=== PATIENT | male | born 1965 | race Caucasian/White ===

== ENCOUNTER 2019-02-24 11:59 | Emergency (ER) | payer OTHER ==
--- NOTE | 2019-02-24 12:17 | ER Document Report ---
ED Medical Screen (RME) - General Chief Complaint: Tremor Stated Complaint: LOW BLOOD SUGAR Time Seen by Provider: 02/24/19 12:12 Notes: Patient is a 53-year-old male presents to the emergency department for generalized diaphoresis and weakness. States he was at work and thought her sugar was getting low. States he ate a peppermint andrea but that did not help with his generalized weakness and diaphoresis. Patient is denying any chest pain is admitting to generalized shortness of breath. Patient states he does have a history of atrial fibrillation and takes Xarelto for same. Patient's blood sugar was noted to be 210 in triage. GENERAL: Alert, interacts well. Anxious, hyperventilating. LUNGS: Clear to auscultation bilaterally, no wheezes, rales, or rhonchi. No respiratory distress. I have greeted and performed a rapid initial assessment of this patient. A comprehensive ED assessment and evaluation of the patient, analysis of test results and completion of the medical decision making process will be conducted by additional ED providers. I have specifically instructed the patient or family members with the patient to immediately return to any nursing staff should anything change in the patient's condition or with their chief complaint. This medical record was dictated with voice recognizing software. There may be grammatical, syntax errors that are unintended. - Related Data Allergies/Adverse Reactions: No Known Allergies Allergy (Verified 02/24/19 12:05) Physical Exam - Vital signs Vitals: Temp Pulse Resp BP Pulse Ox 97.2 F 94 22 H 184/83 H 100 02/24/19 12:05 02/24/19 12:05 02/24/19 12:05 02/24/19 12:05 02/24/19 12:05 Course - Vital Signs Vital signs: Temp Pulse Resp BP Pulse Ox 97.2 F 94 22 H 184/83 H 100 02/24/19 12:05 02/24/19 12:05 02/24/19 12:05 02/24/19 12:05 02/24/19 12:05 - Laboratory Laboratory results interpreted by me: 02/24/19 12:04 POC Glucose 210 H
--- NOTE | 2019-02-24 12:49 | RADIOLOGY REPORT (SQ) ---
EXAM DESCRIPTION: CHEST SINGLE VIEW COMPLETED DATE/TIME: 02/24/2019 12:38 pm REASON FOR STUDY: dizziness COMPARISON: None. EXAM PARAMETERS: NUMBER OF VIEWS: One view. TECHNIQUE: Single frontal radiographic view of the chest acquired. RADIATION DOSE: NA LIMITATIONS: None. FINDINGS: LUNGS AND PLEURA: No opacities, masses or pneumothorax. No pleural effusion. MEDIASTINUM AND HILAR STRUCTURES: No masses. Contour normal. HEART AND VASCULAR STRUCTURES: Heart normal in size. Normal vasculature. BONES: No acute findings. Degenerative changes in the spine. HARDWARE: None in the chest. OTHER: No other significant finding. IMPRESSION: NO ACUTE RADIOGRAPHIC FINDING IN THE CHEST. TECHNICAL DOCUMENTATION: JOB ID: [id number] [employer]- All Rights Reserved Reading location - IP/workstation name: [email or web address]
[2019-02-24 13:00] LABS: ABSOLUTE LYMPHOCYTES (AUTO) 2.4 10^3/uL (0.5-4.7); ABSOLUTE MONOCYTES (AUTO) 0.5 10^3/uL (0.1-1.4); ABSOLUTE NEUT (AUTO) 7.3 10^3/uL (1.7-8.2); BASOPHILS % (AUTO) 0.4 % (0-2); EOSINOPHILS % (AUTO) 0.4 % (0-6); HEMATOCRIT 45.3 % (37.9-51.0); HEMOGLOBIN 15.7 g/dL (13.5-17.0); LYMPHOCYTES % (AUTO) 23.4 % (13-45); MEAN CORPUSCULAR HEMOGLOBIN 32.1 pg (27.0-33.4); MEAN CORPUSCULAR HGB CONC 34.6 g/dL (32.0-36.0); MEAN CORPUSCULAR VOLUME 93 fl (80-97); MONOCYTES % (AUTO) 5.2 % (3-13); PLATELET COUNT 225 10^3/uL (150-450); RED CELL DISTRIBUTION WIDTH 13.5 % (11.5-14.0); SEGMENTED NEUTROPHILS % (AUTO) 70.6 % (42-78); TOTAL CELLS COUNTED % (AUTO) 100 %; WHITE BLOOD COUNT 10.4 10^3/uL (4.0-10.5)
[2019-02-24 13:11] LABS: INTERNATIONAL RATION (INR) 1.41; PROTHROMBIN TIME 17.4 SEC (11.4-15.4)
[2019-02-24 13:20] LABS: ALANINE AMINOTRANSFERASE 33 U/L (21-72); ALKALINE PHOSPHATASE 56 U/L (38-126); ANION GAP 14 (5-19); ASPARTATE AMINO TRANSFERASE 24 U/L (17-59); BILIRUBIN,DIRECT 0.2 mg/dL (0.0-0.4); BILIRUBIN,TOTAL 0.8 mg/dL (0.2-1.3); BLOOD UREA NITROGEN 8 mg/dL (7-20); CALCIUM 9.6 mg/dL (8.4-10.2); CARBON DIOXIDE 25 mmol/L (22-30); CHLORIDE 93 mmol/L (98-107); CREATINE KINASE 97 U/L (55-170); GLUCOSE 190 mg/dL (75-110); POTASSIUM 3.9 mmol/L (3.6-5.0); TOTAL PROTEIN 7.5 g/dL (6.3-8.2)
[2019-02-24 13:31] LABS: CREATINE KINASE MB 0.25 ng/mL (<4.55)
[2019-02-24 13:33] LABS: TROPONIN I < 0.012 ng/mL
--- NOTE | 2019-02-24 14:47 | ER Document Report ---
ED General - General Chief Complaint: Tremor Stated Complaint: LOW BLOOD SUGAR Time Seen by Provider: 02/24/19 12:12 Primary Care Provider: AMOL CEDILLO PA [Primary Care Provider] - Follow up in 3-5 days Mode of Arrival: Ambulatory Information source: Patient, Friend, [facility] Records Notes: 53-year-old male with a history of atrial fibrillation, hypertension, prediabet es (on metformin) presents with concern for an episode of diaphoresis, dizziness, shortness of breath, and tremors that occurred at noon while at work. Patient drove himself to the emergency department where he states he was initially so tremulous he was unable to sign the paperwork. He denies any recent illness except for a bout of diverticulitis 2 weeks ago which self resolved. Patient denies any current abdominal pain, bloody stools, chest pain. Upon my exam patient is asymptomatic. He states that he had not had a recurrence of the symptoms since arriving to the emergency department where his glucose was found to be 201. Patient takes flecainide, Xarelto and has been compliant with his medications. - HPI Onset: Just prior to arrival Onset/Duration: Sudden, Gone Quality of pain: No pain Severity: None Associated symptoms: Shortness of breath, Sweating - Tremulous, dizzy, Other Exacerbated by: Denies Relieved by: Denies Similar symptoms previously: Yes Recently seen / treated by doctor: Yes - Related Data Allergies/Adverse Reactions: No Known Allergies Allergy (Verified 02/24/19 12:05) Past Medical History - General Information source: Patient, [facility] Records - Social History Smoking Status: Never Smoker Chew tobacco use (# tins/day): Yes Frequency of alcohol use: Social Drug Abuse: None Lives with: Spouse/Significant other Family History: Reviewed & Not Pertinent Patient has suicidal ideation: No Patient has homicidal ideation: No - Past Medical History Cardiac Medical History: Reports: Hx Atrial Fibrillation - WITH ABLATION, Hx Hypercholesterolemia, Hx Hypertension Endocrine Medical History: Comment Only: Hx Diabetes Mellitus Type 2 - PRE Renal/ Medical History: Denies: Hx Peritoneal Dialysis Past Surgical History: Comment Only: Hx Cardiac Catheterization - ABLATION Review of Systems - Review of Systems Notes: REVIEW OF SYSTEMS: CONSTITUTIONAL : Denies fever, chills. Denies recent illness. Denies weight loss, recent hospitalizations. EENT: Denies visual changes, eye pain. Denies sore throat, oral lesions, difficulty swallowing. CARDIOVASCULAR: Denies chest pain. Denies palpitations. Denies lower extremity edema. RESPIRATORY: Denies cough. Denies wheezing. GASTROINTESTINAL: Denies abdominal pain or distention. Denies nausea, vomiting, or diarrhea. Denies blood in vomitus, stools, or per rectum. Denies black, tarry stools. Denies constipation. GENITOURINARY: Denies difficulty urinating, painful urination, frequency, blood in urine, testicular pain or penile discharge. MUSCULOSKELETAL: Denies back or neck pain or stiffness. Denies joint pain or swelling. SKIN: Denies rash, lesions or sores. HEMATOLOGIC : Denies easy bruising or bleeding. LYMPHATIC: Denies swollen glands. NEUROLOGICAL: Denies confusion or altered mental status. Denies loss of consciousness. + dizziness or lightheadedness. Denies headache. Denies weakness or paralysis. Denies problems difficulty with ambulation, slurred speech. Denies sensory loss, numbness, or tingling. Denies seizures. PSYCHIATRIC: Denies anxiety or stress. Denies depression, suicidal ideation, or Physical Exam - Vital signs Vitals: Temp Pulse Resp BP Pulse Ox 97.2 F 94 22 H 184/83 H 100 02/24/19 12:05 02/24/19 12:05 02/24/19 12:05 02/24/19 12:05 02/24/19 12:05 - Notes Notes: PHYSICAL EXAMINATION: GENERAL: Well-appearing, well-nourished and in no acute distress. HEAD: Atraumatic, normocephalic. EYES: Pupils equal round and reactive to light, extraocular movements intact, sclera anicteric, conjunctiva are normal. ENT: Nares patent, oropharynx clear without exudates. Moist mucous membranes. NECK: Normal range of motion, supple without lymphadenopathy LUNGS: Breath sounds clear to auscultation bilaterally and equal. No wheezes rales or rhonchi. HEART: Regular rate and rhythm without murmurs ABDOMEN: Soft, nontender, nondistended abdomen. No guarding, no rebound. No m asses appreciated. Musculoskeletal: Normal range of motion, no pitting or edema. No cyanosis. NEUROLOGICAL: Cranial nerves grossly intact. Normal speech, normal gait. Normal sensory, motor exams PSYCH: Normal mood, normal affect. SKIN: Warm, Dry, normal turgor, no rashes or lesions noted. Course - Re-evaluation Re-evalutation: Laboratory 02/24/19 02/24/19 02/24/19 12:04 12:28 12:28 WBC 10.4 RBC 4.90 Hgb 15.7 Hct 45.3 MCV 93 MCH 32.1 MCHC 34.6 RDW 13.5 Plt Count 225 Seg Neutrophils % 70.6 Lymphocytes % 23.4 Monocytes % 5.2 Eosinophils % 0.4 Basophils % 0.4 Absolute Neutrophils 7.3 Absolute Lymphocytes 2.4 Absolute Monocytes 0.5 Absolute Eosinophils 0.0 Absolute Basophils 0.0 PT 17.4 H INR 1.41 Sodium Potassium Chloride Carbon Dioxide Anion Gap BUN Creatinine Est GFR ( Amer) Est GFR (Non-Af Amer) Glucose POC Glucose 210 H Calcium Total Bilirubin Direct Bilirubin Neonat Total Bilirubin Neonat Direct Bilirubin Neonat Indirect Bili AST ALT Alkaline Phosphatase Creatine Kinase CK-MB (CK-2) Troponin I Total Protein Albumin 02/24/19 02/24/19 12:28 12:28 WBC RBC Hgb Hct MCV MCH MCHC RDW Plt Count Seg Neutrophils % Lymphocytes % Monocytes % Eosinophils % Basophils % Absolute Neutrophils Absolute Lymphocytes Absolute Monocytes Absolute Eosinophils Absolute Basophils PT INR Sodium 131.9 L Potassium 3.9 Chloride 93 L Carbon Dioxide 25 Anion Gap 14 BUN 8 Creatinine 0.77 Est GFR ( Amer) > 60 Est GFR (Non-Af Amer) > 60 Glucose 190 H POC Glucose Calcium 9.6 Total Bilirubin 0.8 Direct Bilirubin 0.2 Neonat Total Bilirubin Not Reportable Neonat Direct Bilirubin Not Reportable Neonat Indirect Bili Not Reportable AST 24 ALT 33 Alkaline Phosphatase 56 Creatine Kinase 97 CK-MB (CK-2) 0.25 Troponin I < 0.012 Total Protein 7.5 Albumin 5.0 Chest X-Ray 02/24/19 12:15 IMPRESSION: NO ACUTE RADIOGRAPHIC FINDING IN THE CHEST. Temp Pulse Resp BP Pulse Ox 97.2 F 94 22 H 184/83 H 100 02/24/19 12:05 02/24/19 12:05 02/24/19 12:05 02/24/19 12:05 02/24/19 12:05 02/24/19 14:56 53-year-old male presents with complaint of tremors, diaphoresis, lightheadedness that occurred at noon and self resolved. Patient denies any chest pain, shortness of breath and states that "I feel fine now". 02/24/19 15:25 EKG was obtained upon patient's arrival and showed normal sinus rhythm. CBC is without leukocytosis or anemia. CMP shows hyperglycemia without evidence of DKA. Cardiac enzymes are within normal limits. Patient requesting discharge home. Advised to follow-up with his primary care physician and brush hand as soon as possible. Patient discharged home in stable condition. Patient was evaluated and treated as appropriate for the patient's presenting symptoms and complaint, with consideration of any critical or life threatening conditions that may be associated with their obtained history and exam as noted above. All results were discussed with patient and his boss who is at the [facility]. Patient provided the opportunity to ask questions, and express concerns. Patient was educated on treatments based on their presumed diagnosis as noted above. At this time we will discharge the patient with return precautions and follow-up recommendations. Verbal discharge instructions given a the bedside. Medication warnings reviewed. Patient is in agreement with this plan and has verbalized understanding of return precautions. After careful consideration I feel that that patient can be safely discharged from the emergency department, they were advised to followup with a primary c are physician in 2-3 days. Dictation on this chart was performed using voice recognition software and may result in unintended grammatical, spelling, syntax or errors. - Vital Signs Vital signs: Temp Pulse Resp BP Pulse Ox 98.6 F 65 15 137/85 H 100 02/24/19 15:12 02/24/19 15:12 02/24/19 15:12 02/24/19 15:12 02/24/19 12:05 - Laboratory Result Diagrams: 02/24/19 12:28 02/24/19 12:28 Laboratory results interpreted by me: 02/24/19 02/24/19 02/24/19 12:04 12:28 12:28 PT 17.4 H Sodium 131.9 L Chloride 93 L Glucose 190 H POC Glucose 210 H - Diagnostic Test Radiology reviewed: Image reviewed, Reports reviewed - EKG Interpretation by Pa EKG shows normal: Sinus rhythm Rate: Normal Rhythm: NSR When compared to previous EKG there are: Previous EKG unavailable Discharge - Discharge Clinical Impression: Diaphoresis, Lightheaded, Tremulousness Condition: Good Disposition: HOME, SELF-CARE Instructions: Dizziness ([facility]), Near Syncopal Episode ([facility]) Additional Instructions: Follow up with your [id number] hours for further care or return to the ED IMMEDIATELY if symptoms worsen or you have any concerns. If you cannot afford to follow up with your primary care physician a list of low cost clinics have been provided at the end of your discharge papers as well. Most prescribed medications have multiple side effects. The safest thing to do is when filling your prescription speak to your pharmacist regarding possible interactions with your normal home medications and over the counter medications such as Ibuprofen, Tylenol, Benadryl. If you experience any symptoms that cause you discomfort or concern you should discontinue the medication immediately and return to the emergency room or call your primary care physician. Forms: Elevated Blood Pressure Referrals: AMOL CEDILLO PA [Primary Care Provider] - Follow up in 3-5 days
[2019-02-24 15:14] VITALS: BP 137/85
--- NOTE | 2019-02-24 20:33 | EKG REPORT ---
SEVERITY:- BORDERLINE ECG - SINUS RHYTHM BORDERLINE R WAVE PROGRESSION, ANTERIOR LEADS : Confirmed by: Shantel Schaffer 24-Feb-2019 20:32:28
== END 2019-02-24 15:12 | disposition home or self-care (01) ==
LOC: ER 11:59
DX: R61 Generalized hyperhidrosis (principal); R42 Dizziness and giddiness; G25.2 Other specified forms of tremor; R73.03 Prediabetes; E78.00 Pure hypercholesterolemia, unspecified; I10 Essential (primary) hypertension; I48.91 Unspecified atrial fibrillation; Z79.84 Long term (current) use of oral hypoglycemic drugs; Z79.02 Long term (current) use of antithrombotics/antiplatelets
CPT/HCPCS: 36415; 71045; 80053; 82550; 82553; 82962; 84484; 85025; 85610; 93005; 93010; 99285